=== PATIENT | female | born 1965 | race Caucasian/White ===

== ENCOUNTER 2020-01-03 17:05 | Emergency (ER) | payer OTHER, SELFPAY ==
--- NOTE | ~2020-01-03 | XR_ITS ---
EXAMINATION: XR wrist RT min 3V EXAM DATE: 01/03/2020 17:17 INDICATION: fall, right wrist pain, initial encounter. TECHNIQUE: Frontal, oblique, lateral projections of the right wrist. There are no prior studies for comparison. FINDINGS: Acute closed posttraumatic comminuted fracture of the right radial distal metaphysis exten ding into both the radiocarpal and distal radioulnar joints. There is approximately 50% posterior sha ft width displacement, and approximately 20 degrees of posterior angulation. The ulnar styloid has an unusual shape, contour, possible acute closed posttraumatic ulnar styloid fr acture as well. There is swelling overlying this and the radial fracture. Carpal bones are unremarkab le. IMPRESSION: 1. Right radial distal metaphyseal comminuted intra-articular fracture. 2. Possible ulnar styloid fracture. Reviewed, dictated and finalized at location A.
[2020-01-03 17:18] VITALS: BP 150/74; PULSE 69; RESP 20; TEMP 36.3; O2SAT 100
--- NOTE | 2020-01-03 17:21 | ED.UPPEXIN ---
HPI - Extremity Injury (Upper) General Chief Complaint: Extremity Injury, Upper Stated Complaint: R WRIST INJURY Time Seen by Provider: 01/03/20 17:20 Source: patient and RN notes reviewed Mode of arrival: ambulatory Limitations: no limitations History of Present Illness HPI narrative: 54 old female presents with concern for right wrist injury, reports just prior to arrival she fell landing on her wrist. Ports she placed ice on the injury. She denies decreased sensation, strength in the digits of her right hand. MD complaint: injury to: right and wrist Related Data Home Medications Medication Instructions Recorded Confirmed fluticasone propionate 50 2 spray NASAL DAILY 02/28/19 10/12/19 mcg/actuation nasal spray,suspension paroxetine HCl 40 mg tablet 40 mg PO DAILY 02/28/19 10/12/19 fexofenadine 180 mg tablet 180 mg PO DAILY 09/14/19 10/12/19 Allergies Allergy/AdvReac Type Severity Reaction Status Date / Time cefadroxil Allergy Unknown Hives Verified 09/14/19 10:22 Review of Systems Review of Systems: Narrative: CONSTITUTIONAL: Denies malaise, chills, sweats, or fever. CARDIOVASCULAR: Denies chest pain, palpitations SKIN: Denies open skin, abrasion MUSCULOSKELETAL: Reports right wrist pain, deformity, swelling NEUROLOGIC: Denies numbness, weakness All systems reviewed & are unremarkable except as noted in HPI and below PMFSH Past Medical History Medical History (Updated 01/03/20 @ 17:50 by Cari Miller NP) Allergies CKD (chronic kidney disease) HPV (human papilloma virus) anogenital infection Hyperlipidemia Hypertension Proteinuria Type 2 diabetes mellitus Family History Family History (Updated 08/18/17 @ 16:53 by DOCTOR UNKNOWN) Father Hypertension Social History Social History (Updated 02/28/19 @ 09:11 by Roslyn Love CMA) Smoking status: Never smoker Alcohol intake: current Comments At time of signature, agree with nursing past medical, surgical, social and family history. There is no relevant family history pertinent to the presenting complaint Exam Narrative: Exam Narrative: GENERAL: Well-appearing, well-nourished, and in no acute distress. HEAD: Normocephalic, atraumatic. EYES: PERRLA, conjunctivae clear NECK: Supple. CHEST: Speaks in full sentences. No respiratory distress. HEART: Regular rate and rhythm. Normal and equal peripheral pulses. EXTREMITIES: Right wrist, right hand, digits of right hand has normal sensation, wrist hand digits have limited range of motion. Moderate wrist edema, deformity. No ecchymosis. 4/5 strength with digit flexion and extension. Normal sensation with sensitivity to light touch and pain. Generalized wrist tenderness. No open wounds, no devitalized tissue or atrophy, no trophic changes, nearby joints and structures intact. Distal pulses palpable and equal bilaterally, skin warm, dry, pink. Capillary refill 3 seconds. SKIN: Warm, dry, no rash. Skin intact NEURO: Alert and oriented x3. PSYCH: Normal mood and affect Course Course Emergency Course: Patient is aware of diagnosis, understands and agrees to treatment plan. Anticipatory guidance given. Patient agrees to follow-up as directed and is aware of reasons to seek care at the emergency department. Portions of this record may have been created with voice recognition software Vital Signs Vital signs: Vital Signs Temperature 97.4 F L 01/03/20 17:18 Pulse Rate 69 01/03/20 17:18 Respiratory Rate 20 01/03/20 17:18 Blood Pressure 150/74 H 01/03/20 17:18 Pulse Oximetry 100 01/03/20 17:18 Temperature 97.4 F L 01/03/20 17:18 Pulse Rate 69 01/03/20 17:18 Respiratory Rate 20 01/03/20 17:18 Blood Pressure 150/74 H 01/03/20 17:18 Pulse Oximetry 100 01/03/20 17:18 Reviewed. Patient has history of hypertension Transfer Transfered to: [facility] Transportation: Other (Private vehicle) Transfer rationale: Complicated fracture Accepting physician: Mitch Aguiar
--- NOTE | 2020-01-03 17:55 | PC.NURSE ---
Patient arm placed in pillow splint with ice in place. Secured with coban. Sent to [facility]. Will remain NPO.
== END 2020-01-03 17:56 | disposition short-term general hospital (02) ==
PROVIDERS: Emergency Provider Nurse Practitioner; PCP Internal Medicine
DX: S52.501A Unspecified fracture of the lower end of right radius, initial encounter for closed fracture (principal); W19.XXXA Unspecified fall, initial encounter; I12.9 Hypertensive chronic kidney disease with stage 1 through stage 4 chronic kidney disease, or unspecified chronic kidney disease; E11.22 Type 2 diabetes mellitus with diabetic chronic kidney disease; N18.9 Chronic kidney disease, unspecified; E78.5 Hyperlipidemia, unspecified
CPT/HCPCS: 73110; 99214; G0463

== ENCOUNTER 2020-01-03 18:06 | Emergency (ER) | payer OTHER, SELFPAY ==
--- NOTE | ~2020-01-03 | XR_ITS ---
EXAMINATION: XR wrist RT 2V EXAM DATE: 01/03/2020 21:33 INDICATION: Right wrist pain, post reduction. TECHNIQUE: Frontal and lateral projections of the right wrist. Comparison is made to prior examinati on from earlier same date. FINDINGS: Again there is acute comminuted right distal radial metaphyseal fracture extending into th e joints. There has been interval reduction in the amount posterior displacement. Angulation now appe ars near anatomic. There is much better visualized on the styloid base avulsion fracture with mild displacement. Carpal bones are unremarkable. IMPRESSION: 1. Partially reduced comminuted right radial metaphyseal fracture into joints. 2. Mildly displaced ulnar styloid base avulsion fracture. Reviewed, dictated and finalized at location A.
[2020-01-03 18:10] VITALS: BP 160/94; PULSE 76; RESP 12; TEMP 36.9; O2SAT 100
[2020-01-03] MEDS: HYDROcodone/acetaminophen (*CRX) 5-325 MG TABLET 2 TAB PO (19:34)
[2020-01-03] MEDS: KETOROLAC (*BKC) 60 MG/2 ML VIAL IM (19:35)
--- NOTE | 2020-01-03 19:43 | ED.UPPEXIN ---
HPI - Extremity Injury (Upper) General Chief Complaint: Extremity Injury, Upper Stated Complaint: EXTREMITY PAIN Time Seen by Provider: 01/03/20 19:08 Source: patient Mode of arrival: ambulatory Limitations: no limitations History of Present Illness HPI narrative: Patient complaining of right wrist pain and swelling after she fell earlier tonight. Patient denies any head, neck, back, chest, abdomen, pelvis, or any other extremity pain/injury. MD complaint: injury to: right and wrist Other injuries: none Severity scale (1-10): 8 Relieving factors: immobilization Exacerbating factors: movement of extremity Treatments prior to arrival: cold therapy Related Data Home Medications Medication Instructions Recorded Confirmed fluticasone propionate 50 2 spray NASAL DAILY 02/28/19 10/12/19 mcg/actuation nasal spray,suspension paroxetine HCl 40 mg tablet 40 mg PO DAILY 02/28/19 10/12/19 fexofenadine 180 mg tablet 180 mg PO DAILY 09/14/19 10/12/19 Allergies Allergy/AdvReac Type Severity Reaction Status Date / Time cefadroxil Allergy Unknown Hives Verified 01/03/20 19:40 Review of Systems Review of Systems: All systems reviewed & are unremarkable except as noted in HPI and below Constitutional: Constitutional: Denies body ache(s), Denies chills, Denies excessive sweating, Denies fatigue, Denies fever(s), Denies headache(s), Denies lethargy, Denies malaise, Denies weakness and Denies weight loss Eyes: Eyes: Denies blurry vision, Denies change in vision and Denies loss of vision ENT: Denies dizziness, Denies ear discharge, Denies headache(s), Denies lip swelling, Denies epistaxis, Denies nasal congestion, Denies neck pain, Denies throat swelling and Denies tongue swelling Cardiovascular: Cardiovascular: Denies chest pain, Denies chest pain at rest, Denies chest pain with activity, Denies diaphoresis, Denies rapid heart rate, Denies edema, Denies irregular heart rhythm, Denies lightheadedness, Denies palpitations, Denies dyspnea and Denies dyspnea on exertion Respiratory: Respiratory: Denies chest congestion, Denies cough, Denies hemoptysis, Denies dyspnea and Denies dyspnea on exertion Gastrointestinal: Gastrointestinal: Denies abdominal pain, Denies melena, Denies hematochezia, Denies diarrhea, Denies nausea, Denies vomiting and Denies hematemesis Musculoskeletal: Musculoskeletal: Denies abnormal gait, Denies neck pain and Denies numbness Neurologic: Denies Abnormal speech present, Denies abnormal gait, Denies confusion, Denies dizziness, Denies headache(s), Denies focal weakness, Denies loss of vision, Denies numbness, Denies Other visual disturbances, Denies Sensory deficit (Neuro) and Denies weakness Psychiatric: Psychiatric: Denies confusion, Denies depression, Denies auditory hallucinations, Denies homicidal ideation and Denies suicidal ideation Endocrine: Endocrine: Denies cold intolerance, Denies excessive sweating, Denies fatigue, Denies heat intolerance and Denies palpitations Hematologic/Lymphatic: Hematologic/Lymphatic: Denies easy bleeding and Denies easy bruising Allergic/Immunologic: Allergic/Immunologic: Denies lip swelling, Denies throat swelling and Denies tongue swelling PMFSH Past Medical History Medical History (Updated 01/03/20 @ 21:29 by Papo Gardner MD) Allergies CKD (chronic kidney disease) HPV (human papilloma virus) anogenital infection Hyperlipidemia Hypertension Proteinuria Type 2 diabetes mellitus Family History Family History (Updated 08/18/17 @ 16:53 by DOCTOR UNKNOWN) Father Hypertension Social History Social History (Updated 02/28/19 @ 09:11 by Roslyn Love [facility]) Smoking status: Never smoker Alcohol intake: current Exam Const: General: cooperative, healthy appearing, comfortable, no acute distress, well developed, alert and awake; No confusion Orientation/consciousness: oriented to person, oriented to place, oriented to time, patient oriented x3 and No c
[2020-01-03] MEDS: diazePAM INJ (*CRX) 10 MG/2 ML SYRINGE 5 MG IM (20:53)
== END 2020-01-03 21:56 | disposition home or self-care (01) ==
PROVIDERS: Emergency Provider Emergency Medicine; PCP Internal Medicine
DX: S59.291A Other physeal fracture of lower end of radius, right arm, initial encounter for closed fracture (principal); S52.611A Displaced fracture of right ulna styloid process, initial encounter for closed fracture; I12.9 Hypertensive chronic kidney disease with stage 1 through stage 4 chronic kidney disease, or unspecified chronic kidney disease; N18.9 Chronic kidney disease, unspecified; E11.22 Type 2 diabetes mellitus with diabetic chronic kidney disease; E78.5 Hyperlipidemia, unspecified; W19.XXXA Unspecified fall, initial encounter
CPT/HCPCS: 25605; 73100; 96372; 99285; A4565; A9270; J1885; J3360

== ENCOUNTER 2020-01-10 01:32 | Outpatient (CLI) | payer OTHER, SELFPAY ==
[2020-01-10 18:17] LABS: SARS-CoV-2 RNA PCR Negative
== END 2020-01-10 01:33 | disposition home or self-care (01) ==
LOC: ANHCOVIDDT 01:33
PROVIDERS: PCP Internal Medicine; Visit Provider Orthopaedic Surgery
DX: Z01.812 Encounter for preprocedural laboratory examination (principal); Z20.828 Contact with and (suspected) exposure to other viral communicable diseases
CPT/HCPCS: 87635; C9803; U0003

== ENCOUNTER 2020-01-12 01:44 | Day surgery (SDC) | payer OTHER, SELFPAY ==
[2020-01-10 10:26] VITALS: BMI 19.1
--- NOTE | 2020-01-11 09:52 | P.PNAN_ITS ---
Anes - Initial Pre Proc Eval Procedure: Operation Date: 01/12/20 10:00 Proposed Procedures p Open Reduction Internal Fixation Right Distal Radius Fracture - Rogers Teague MD Date/Time: 01/11/20 09:52 Surgeon: Rogers Teague MD Pre Op Diagnosis: right distal radius fx Patient Data Age: 54 Gender: F Height: 1.52 m Weight: 44.45 kg Allergies Allergy/AdvReac Type Severity Reaction Status Date / Time cefadroxil Allergy Severe Hives Verified 01/12/20 08:28 Home Medications Medication Instructions Recorded Confirmed Type paroxetine HCl 40 mg tablet 40 mg PO DAILY 02/28/19 01/12/20 History fexofenadine 180 mg tablet 180 mg PO DAILY 09/14/19 01/12/20 History atorvastatin 10 mg tablet 10 mg PO DAILY #90 tablet 10/12/19 01/12/20 Rx hydrochlorothiazide 12.5 mg tablet 12.5 mg PO DAILY #90 tablet 10/12/19 01/12/20 Rx lisinopril 40 mg tablet 40 mg PO DAILY #90 tablet 10/12/19 01/12/20 Rx hydrocodone-acetaminophen [[place]] 1 tablet PO Q8H PRN #14 tablet 01/03/20 01/12/20 Rx metformin 500 mg tablet 500 mg PO DAILY #270 tablet 01/10/20 01/12/20 Rx Patient hx anesthesia problems: none Family hx anesthesia problems: none PMFSH Past Medical History Medical History (Updated 01/10/20 @ 14:36 by MICHAEL Jasso-Wendy) Allergies Broken arm Right CKD (chronic kidney disease) HPV (human papilloma virus) anogenital infection Hyperlipidemia Hypertension Proteinuria Type 2 diabetes mellitus Family History Family History Father Hypertension Social History Social History Smoking status: Never smoker Alcohol intake: current Drinks per week: 2 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[employer] Gender identity (if verbalized by the patient): Female Spiritual care concerns: No Anes - Eval Final PreProcedure Day of Procedure 01/11/20 09:52 Patient weight: thin Heart: regular rate and rhythm Lungs: clear to auscultation and normal air movement Airway: Mallampati scale class II Neurological: alert and oriented Last oral intake: >/= 8 hours ASA classification: III Emergent: no Anesthetic plan: proceed Anesthesia type and monitoring: general LMA and standard monitoring Informed Consent: The patient's anesthetic plan and its attendant risks and benefits were discussed with the patient/family/POA. Questions were solicited and answers provided to the satisfaction of the patient/family/POA.
--- NOTE | 2020-01-11 09:55 | WPDANESPNB ---
Anes - Peripheral Nerve Block Date/Time: 01/11/20 09:55 I have discussed with the patient/family/POA the placement of a peripheral nerve block for post-operative pain management, including associated risks, benefits, complications, and side effects. Alternative methods of post-operative analgesia were detailed. Questions were solicited and answers provided to the satisfaction of the patient/family/POA. Time-Out: A pre-procedural Time-Out was completed immediately before starting the procedure and confirmed: Patient Identification, Site, Procedure, Patient Position and the Availability of Requisite Equipment. Clinical Indications: Acute post-operative pain management requested by the operative surgeon. Nerve Block Insertion Note Anes-nerve block: supraclavicular right Patient position: supine Skin prep: chlorhexidine Needle: 22 gauge, stimulating, insulated echogenic needle. Needle length: 50 mm Technique: ultrasound Injectate: bupivacaine 0.5% with epi 5 mcg/ml (30cc) Observations: tolerated well Complications: none Procedure start time:: 957 Procedure end time:: 1000
[2020-01-12] VITALS (9 sets, daily range): BP systolic 122–156; BP diastolic 83–94; PULSE 68–88; RESP 12–16; TEMP 36.4–36.6; O2SAT 95–100
--- NOTE | ~2020-01-12 | XR_ITS ---
EXAMINATION: XR surgery orthopedic DATE: 01/12/2020 12:21 INDICATION: ORIF right wrist fracture TECHNIQUE: Dorsal palmar and lateral fluoroscopic spot images of the right wrist were obtained during procedure performed by Dr. Teague. Radiologist was not present for the imaging or procedure. The amoun t of fluoroscopy time used during this procedure was 0.5 minutes. COMPARISON: 01/03/2020 FINDINGS: Interval open reduction and internal fixation of a comminuted distal right radial fracture with volar T plate and screw fixation. The ulnar styloid fracture remains unfixed. Both fractures are in near a natomic alignment. Normal alignment and joint spaces in the carpus. IMPRESSION: 1. Essentially anatomic alignment post volar T plate and screw fixation of a comminuted distal right radial fracture. 2. Essentially anatomic alignment of the ulnar styloid fracture which remains without fixation. Reviewed, dictated and finalized at location B. IMPRESSION: 1. Essentially anatomic alignment post volar T plate and screw fixation of a co mminuted distal right radial fracture. 2. Essentially anatomic alignment of the ulnar styloid fracture which remains w ithout fixation.
--- NOTE | 2020-01-12 08:37 | ECG_ITS ---
Measurements Intervals Ackerman Rate: 76 P: 52 SC: 136 QRS: 24 QRSD: 77 T: 43 QT: 373 QTc: 421 Interpretive Statements SINUS RHYTHM BASELINE ARTIFACT- I, III, AVR, AVL, V3 NORMAL ECG Electronically Signed On 01-12-2020 9:22:45 CDT by Gerber Sanchez D.O.
[2020-01-12] MEDS: LACTATED RINGERS 1,000 ML 30 ML IV CONT ×2 (08:55→12:20)
[2020-01-12] MEDS: KETOROLAC 15 MG/ML VIAL (*BKC) IV PUSH (08:57)
--- NOTE | 2020-01-12 09:41 | WPDHPUPDATE1 ---
History and Physical Update Update Date/Time: 01/12/20 09:41 History and Physical has been reviewed, including an updated exam of the patient. There are NO changes in the patient's condition. Risks, benefits, and alternatives have been discussed and questions answered. Patient agrees to proceed with procedure.
[2020-01-12] MEDS: CLINDAMYCIN 900 MG/D5W 50 ML 900 MG/50 ML PIGGYBACK 50 MG IVPB (10:37)
--- NOTE | 2020-01-12 12:37 | P.OP_ITS ---
Procedure Note - Detailed Date of procedure: 01/12/20 Pre-op diagnosis: right distal radius fx Post-op diagnosis: same Procedure performed: ORIF right distal radius fracture Description of procedure: The patient was identified and the proper side identified. In the preop holding area, the anesthesia team performed a right upper extremity block. she was taken back to the operating room, transferred to the or table positioning supine taking care to pad her torso and extremities. After general anesthetic induction and intubation, a nonsterile tourniquet was placed high on the right arm which was prepped and draped in the usual sterile fashion. The extremity was exsanguinated and tourniquet inflated to 200 mmHg remaining up for approximately 62 minutes. A volar longitudinal incision was made along the FCR tendon distally. The subcutaneous tissue was sharply dissected protecting neurovascular structures. The FCR tendon was released from its sheath and retracted ulnarly. This allowed for the deep fascia of the forearm to be divided longitudinally in line with the incision. Care was taken to protect the volar compartment structures as well as the radial nerve and radial vascular structures. The pronator quadratus was elevated off of the distal radius allowing for inspection of the fracture site. The fracture fragments were disimpacted and able to be realigned virtually anatomically with fluoroscopic assistance. They were secured in this position with a wide three hole right plate from the DVR set. The plate was applied with fluoroscopic visualization to avoid penetration of the joint and to ensure optimal hardware placement. Once the plate was secure the overall construct was assessed fluoroscopically on the AP and lateral views. The virtually anatomic reduction was held very nicely. The construct was stable. The wound was irrigated with a copious amount of sterile antibiotic solution. Skin edges were reapproximated with two 0 strata fix and tissue adhesive for the skin. Sterile dressing was applied. Tourniquet was released. A well-padded short-arm volar wrist splint was fashioned. The procedure was well tolerated. There were no known intraoperative complications. Estimated blood loss was negligible. Anesthesia: GLMA Surgeon: Rogers Teague MD Claims Director: Hanane Reyes Estimated blood loss (mL): 10 Tourniquet time (min): 62 Drains: No Packing: No Pathology: none sent Complications: No immediate complications Condition: stable Disposition: PACU
[2020-01-12 12:42] LABS: Glucose Point of Care 120 (65-105)
--- NOTE | 2020-01-12 13:07 | SUR.PREOP ---
PO Acetaminophen not given this am as patient had taken Byram about an hour before arrival.
== END 2020-01-12 14:40 | disposition home or self-care (01) ==
PROVIDERS: PCP Internal Medicine; Visit Provider Orthopaedic Surgery
PROC: (CPT 25575; principal; 2020-01-12 10:00)
DX: S52.571A Other intraarticular fracture of lower end of right radius, initial encounter for closed fracture (principal); S52.611A Displaced fracture of right ulna styloid process, initial encounter for closed fracture; W19.XXXA Unspecified fall, initial encounter; I12.9 Hypertensive chronic kidney disease with stage 1 through stage 4 chronic kidney disease, or unspecified chronic kidney disease; E11.22 Type 2 diabetes mellitus with diabetic chronic kidney disease; N18.9 Chronic kidney disease, unspecified; E78.5 Hyperlipidemia, unspecified; Z79.84 Long term (current) use of oral hypoglycemic drugs; G89.18 Other acute postprocedural pain
CPT/HCPCS: 25608; 64415; 93005; A4565; C1713; J1100; J1885; J2250; J2370; J2405; J2704; J3010; J7120

== ENCOUNTER 2020-03-04 12:07 | Outpatient (RCR) | payer OTHER, SELFPAY ==
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
--- NOTE | 2020-04-03 12:58 | PCOTNOTE ---
Patient did not show for OT tx this afternoon. Called and left patient voicemail.
--- NOTE | 2020-04-05 10:08 | OTOPEVAL ---
OCCUPATIONAL THERAPY DISCHARGE NOTE 04/05/20 Shelly attended therapy on 03/27/20 on the same day as her follow up with . At that time her ROM and strength is well within functional limits and she was completing strengthening with 2# free weight. Discussed the possibility of discharging if she was released by MD. She called to report that she was released that day and is also ready to be discharged from therapy. She received 4 treatment sessions total. She is independent with all HEPs. AROM from 03/27/20: - supination 85* - pronation 80* - wrist flexion 65* - wrist extension 65* - RD 20* - UD 30* Desktop Analyst strength measured 44 lbs. Thank you for referring Joanie Vargas to [facility].?Please review, sign, date and return this D/C Note GEORGE. I agree with and certify that the following plan of care is medically necessary. Referring Physician Date Referring Provider: Rogers Teague MD
== END 2020-04-05 12:08 | disposition home or self-care (01) ==
LOC: ANHOT 12:07
PROVIDERS: PCP Internal Medicine; Visit Provider Orthopaedic Surgery
DX: S52.501D Unspecified fracture of the lower end of right radius, subsequent encounter for closed fracture with routine healing (principal); S52.601D Unspecified fracture of lower end of right ulna, subsequent encounter for closed fracture with routine healing
CPT/HCPCS: 97018; 97110; 97165

== ENCOUNTER → 2020-05-06 15:50 | Outpatient (CLI) | payer OTHER, SELFPAY ==
--- NOTE | ~2020-05-06 | MM_ITS ---
EXAMINATION: MM screening [facility] BI w gregg HISTORY: Screening mammogram TECHNIQUE: Craniocaudal and mediolateral oblique 3-D tomosynthesis images were obtained and synthetic 2-D images were generated. CAD analysis was submitted and interpreted. COMPARISON: 04/08/2018, 03/17/2017, 02/22/2016 BREAST PARENCHYMAL COMPOSITION: The breasts are heterogeneously dense, which may obscure small masses . FINDINGS: RIGHT BREAST: There is an obscured mass at the 12:00 location in the anterior third of the breast. LEFT BREAST: There is no evidence of suspicious mass, calcification, or architectural distortion to s uggest malignancy. There has been no significant interval change. IMPRESSION: 1. Right breast mass. 2. Additional mammographic views and possible breast ultrasound are recommended. BI-RADS Category 0: Incomplete: Needs additional imaging evaluation. Reviewed, dictated and finalized at location A. MENT MAKER HAND IMPRESSION: 1. Right breast mass. 2. Additional mammographic views and possible breast ultrasound are recommended . BI-RADS Category 0: Incomplete: Needs additional imaging evaluation.
== END ==
PROVIDERS: Visit Provider Nurse Practitioner Obstetrics & Gynecology
DX: Z12.31 Encounter for screening mammogram for malignant neoplasm of breast (principal); R92.8 Other abnormal and inconclusive findings on diagnostic imaging of breast
CPT/HCPCS: 77063; 77067

== ENCOUNTER → 2020-05-17 17:45 | Outpatient (CLI) | payer OTHER, SELFPAY ==
--- NOTE | ~2020-05-17 | DEXA_ITS ---
Bone Density Report Name: Joanie Vargas Age: 55 Sex: Female Ethnicity: White Date of : 1965 Indication: osteopenia; postmenopausal Referring Provider: Kathryn Love Study: Bone densitometry was performed. Exam Date: May 17, 2020 Accession number: [id number] Bone Density: Region BMD T-score Z-score Classification AP Spine (L1-L4) 0.880 -1.5 -0.4 Osteopenia Femoral Neck (Left) 0.587 -2.4 -1.3 Osteopenia Total Hip (Left) 0.705 -1.9 -1.3 Osteopenia Femoral Neck (Right) 0.613 -2.1 -1.1 Osteopenia Total Hip (Right) 0.702 -2.0 -1.3 Osteopenia Total Hip Mean 0.704 -2.0 -1.3 Osteopenia World Health Organization criteria for BMD impression classify patients as: Normal (T-score at or above -1.0), Osteopenia (T-score between -1.0 and -2.5), or Osteoporosis (T-score at or below -2.5). 10-year Fracture Risk(1): Major Osteoporotic Fracture 7.8% Hip Fracture 1.4% Reported Risk Factors: [place] (), Neck BMD=0.587, BMI=19.9 (1) FRAX(R) Version 3.08. Fracture probability calculated for an untreated patient. Fracture probability may be lower if the patient has received treatment. Previous Exams: Region Exam Age BMD T-score BMD Change BMD Change Date g/cm2 vs Baseline vs Previous AP Spine(L1-L4) 05/17/2020 55 0.880 -1.5 -0.197* -0.097* 02/15/2015 49 0.977 -0.6 -0.100* -0.100* 12/16/2009 44 1.077 0.3 Total Hip(Left) 05/17/2020 55 0.705 -1.9 -0.168* -0.096* 02/15/2015 49 0.800 -1.2 -0.073* -0.073* 12/16/2009 44 0.873 -0.6 Total Hip(Right) 05/17/2020 55 0.702 -2.0 -0.165* -0.086* 02/15/2015 49 0.788 -1.3 -0.079* -0.079* 12/16/2009 44 0.867 -0.6 *Denotes significance at 95% confidence level, LSC for AP Spine = 0.022 g/cm2, LSC for Total Hip = 0.027 g/cm2 Clinical Information Provided by Patient: Patient maximum height was 60.0 Menopause Age: 44 No regular weight bearing exercise Drinks caffeinated beverages Onset of menses at age 13 Number of children 2 Impression: The patient has low bone mass, based on the Left Femoral Neck T-score. The patient has an estimated ten-year risk of hip fracture of 1.4% and an estimated ten-year risk of major fracture of 7.8%, based on the WHO FRAX algorithm. The BMD for the AP Spine(L1-L4) decreased, changing by -0.097 since the last DXA exam. The BMD for the Total Hip(Le
== END ==
PROVIDERS: Visit Provider Clinical Nurse Specialist
DX: Z78.0 Asymptomatic menopausal state (principal); M85.88 Other specified disorders of bone density and structure, other site; M85.852 Other specified disorders of bone density and structure, left thigh; M85.851 Other specified disorders of bone density and structure, right thigh
CPT/HCPCS: 77080

== ENCOUNTER → 2020-06-05 08:49 | Outpatient (CLI) | payer OTHER, SELFPAY ==
--- NOTE | ~2020-06-05 | MMUS_ITS ---
EXAMINATION: MM diagnostic mammo unilat RT, US breast RT limited HISTORY: Right breast mass on screening mammogram TECHNIQUE: Additional 3-D tomosynthesis images of the right breast were performed and synthetic 2-D i mages were generated. CAD analysis was submitted and interpreted. High resolution limited right breas t ultrasound was performed. COMPARISON: 05/06/2020, 04/08/2018, 03/17/2017 BREAST PARENCHYMAL COMPOSITION: The breasts are heterogeneously dense, which may obscure small masses . FINDINGS: MAMMOGRAPHIC FINDINGS: There is a 12 mm oval, obscured, equal density mass in the anterior third of the breast at the 12:00 location 2 cm from the nipple. No suspicious calcification or architectural distortion are identified . ULTRASOUND: There is a 12 mm cyst at the 12:00 location 2 cm from the nipple corresponding to the mammographic fi nding in question. No suspicious cystic or solid mass is identified. IMPRESSION: 1. No mammographic or sonographic evidence of malignancy. 2. Recommend routine screening mammography in one year. BI-RADS Category 2: Benign finding(s). Reviewed, dictated and finalized at location A. IMPRESSION: 1. No mammographic or sonographic evidence of malignancy. 2. Recommend routine screening mammography in one year. BI-RADS Category 2: Benign finding(s).
== END ==
PROVIDERS: Visit Provider Nurse Practitioner Obstetrics & Gynecology
DX: R92.8 Other abnormal and inconclusive findings on diagnostic imaging of breast (principal)
CPT/HCPCS: 76642; 77065

== ENCOUNTER 2020-09-03 13:58 | Outpatient (CLI) | payer OTHER, SELFPAY ==
--- NOTE | ~2020-09-03 | XR_ITS ---
EXAMINATION: XR abdomen/kub 1V DATE: 09/03/2020 14:18 INDICATION: Right kidney stone. TECHNIQUE: A supine view of the abdomen on 2 radiographs was obtained. COMPARISON: Abdomen radiographs 04/09/2019 FINDINGS: There is gaseous distention of the stomach. There is a large volume of stool in the colon. There are phleboliths in the pelvis. The kidneys are obscured by bowel. IMPRESSION: 1. No visible urolithiasis. Reviewed, dictated and finalized at location A. IMPRESSION: 1. No visible urolithiasis.
== END 2020-09-03 13:59 | disposition home or self-care (01) ==
LOC: ANHIMG 14:00
PROVIDERS: PCP Internal Medicine; Visit Provider Nurse Practitioner Family
DX: N20.0 Calculus of kidney (principal)
CPT/HCPCS: 74018